=== PATIENT | female | born 1990 | race Caucasian/White ===

== ENCOUNTER 2017-04-25 10:44 | Emergency (ER) | payer SELFPAY ==
[2017-04-25 11:06] VITALS: BP 120/53
[2017-04-25] MEDS ORDERED: PROCHLORPERAZINE INJ 5 MG/ML 2 ML VIAL IV ONE (11:30)
--- NOTE | 2017-04-25 11:41 | UC ---
General HPI - HPI Summary HPI Summary: patient is 10 weeks , has been vomiting not able to keep any food or drink down. no fever, no lightheadness or dizzyness - History of Current Complaint Chief Complaint: UCGI Stated Complaint: VOMITING Time Seen by Provider: 04/25/17 11:25 Hx Obtained From: Patient Hx Last Menstrual Period: 06/29/15 Onset/Duration: Sudden Onset, Lasting Days Timing: Constant Onset Severity: Mild Current Severity: Moderate Associated Signs & Symptoms: Positive: Headache, Vomiting - Allergy/Home Medications Allergies/Adverse Reactions: Allergies Allergy/AdvReac Type Severity Reaction Status Date / Time No Known Allergies Allergy Verified 04/25/17 11:01 Home Medications: Home Medications Heartburn Medication DAILY 04/25/17 [History] PMH/Surg Hx/FS Hx/Imm Hx Previously Healthy: Yes - Surgical History Surgical History: None - Family History Known Family History: Negative: Cardiac Disease, Hypertension - Social History Alcohol Use: None Substance Use Type: None Smoking Status (MU): Heavy Every Day Tobacco Smoker Type: Cigarettes Amount Used/How Often: 1 PPD Have You Smoked in the Last Year: Yes Household Exposure Type: Cigarettes - Immunization History Most Recent Influenza Vaccination: NOT THIS 2014 Review of Systems Constitutional: Fatigue Skin: Negative Eyes: Negative ENT: Negative Respiratory: Negative Cardiovascular: Negative Gastrointestinal: Vomiting, Nausea Genitourinary: Negative Motor: Negative Neurovascular: Negative Musculoskeletal: Negative Neurological: Headache Psychological: Negative All Other Systems Reviewed And Are Negative: Yes Physical Exam Triage Information Reviewed: Yes Appearance: Ill-Appearing, Pain Distress Vital Signs: Initial Vital Signs Temp 98.4 F 04/25/17 11:02 Pulse 63 04/25/17 11:02 Resp 14 04/25/17 11:02 BP 120/53 04/25/17 11:02 Pulse Ox 100 04/25/17 11:02 Eye Exam: Normal Eyes: Positive: Conjunctiva Clear ENT: Positive: Normal ENT inspection, Hearing grossly normal, Pharynx normal, TMs normal Dental Exam: Normal Neck exam: Normal Neck: Positive: Supple, Nontender, No Lymphadenopathy Respiratory Exam: Normal Respiratory: Positive: Chest non-tender, Lungs clear, Normal breath sounds Cardiovascular Exam: Normal Cardiovascular: Positive: RRR, No Murmur, Pulses Normal Abdominal Exam: Normal Abdomen Description: Positive: No Organomegaly, Soft, Other: - epigastric tenderness Bowel Sounds: Positive: Present Musculoskeletal Exam: Normal Musculoskeletal: Positive: Strength Intact, ROM Intact, No Edema Neurological Exam: Normal Neurological: Positive: Alert, Muscle Tone Normal Psychological Exam: Normal Skin Exam: Normal Course/Dx - Course Course Of Treatment: hx obtained, exam performed ,meds reviewed, anitnausea given, UA shows dehydration, - Differential Dx - Multi-Symptom Differential Diagnoses: Other - hyperemesis gravidarum gastroenteritis Provider Diagnoses: dehydration. . nausea and vomiting Discharge - Discharge Plan Condition: Stable Disposition: HOME Prescriptions: Metoclopramide TAB* [Reglan TAB*] 10 mg PO Q8H PRN #60 tab PRN Reason: Nausea Ranitidine HCl [Eql Acid Scuba Diver Maximum] 150 mg PO AC #30 tab Patient Education Materials: Nausea and Vomiting in (ED) Additional Instructions: 1. use the medication as directed 2. Increase fluid intake and tolerated and eat as tolerated, bland, light diet
== END 2017-04-25 12:38 | disposition home or self-care (01) ==
LOC: UCCORT 10:44
DX: O21.1 Hyperemesis gravidarum with metabolic disturbance (principal); R51 Headache; R53.83 Other fatigue; Z3A.10 10 weeks gestation of pregnancy; F17.210 Nicotine dependence, cigarettes, uncomplicated
CPT/HCPCS: 81003; 84702; 96372; 99212; G0463; J0780

== ENCOUNTER 2018-03-21 11:22 | Emergency (ER) | payer OTHER ==
[2018-03-21 12:15] VITALS: BP 110/47
[2018-03-21] MEDS ORDERED: Albuterol 2.5 MG/3 ML NEB.SOL* (0.083%) INH ONE (12:27)
--- NOTE | 2018-03-21 12:27 | UC ---
General HPI - HPI Summary HPI Summary: Patient resents complained of cough, stuffy nose, headache, backache and fever. This began about a week ago with basic head cold that has moved into her chest. She notes it is getting progressively worse. The fever is subjective. She admits to being short of breath and wheezing. She denies any history of asthma but offers that she's had pneumonia in the past and this is feeling similar. She self treated with some DayQuil and NyQuil which gives her some transient relief. She has no associated chest pain nausea vomiting diarrhea. - History of Current Complaint Stated Complaint: HEAD COLD Time Seen by Provider: 03/21/18 12:12 Hx Obtained From: Patient Hx Last Menstrual Period: pt on depo and had a baby 4 months ago Onset/Duration: Gradual Onset Timing: Constant Pain Intensity: 6 Associated Signs & Symptoms: Positive: Back Pain - from cough, Cough. 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 - Surgical History Surgical History: None - Family History Known Family History: Negative: Cardiac Disease, Hypertension - Social History 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 Lives: With Family Alcohol Use: None Substance Use Type: Prescribed Substance Use Comment - Amount & Last Used: suboxone Smoking Status (MU): Heavy Every Day Tobacco Smoker Type: Cigarettes Amount Used/How Often: 1 PPD Length of Time of Smoking/Using Tobacco: since age 14 Have You Smoked in the Last Year: Yes Household Exposure Type: Cigarettes - Immunization History Most Recent Influenza Vaccination: NOT THIS SEASON, 2014 Vaccination Up to Date: Yes Review of Systems Constitutional: Fever, Chills Skin: Negative Eyes: Negative ENT: Sinus Congestion Respiratory: Shortness Of Breath, Cough Cardiovascular: Negative Gastrointestinal: Negative Genitourinary: Negative Motor: Negative Neurovascular: Negative Musculoskeletal: Other: - back pain Neurological: Negative Psychological: Negative Is Patient Immunocompromised?: No All Other Systems Reviewed And Are Negative: Yes Physical Exam Triage Information Reviewed: Yes Appearance: Well-Appearing Vital Signs: Initial Vital Signs Temp 97.4 F 03/21/18 12:04 Pulse 64 03/21/18 12:04 Resp 16 03/21/18 12:04 BP 110/47 03/21/18 12:04 Pulse Ox 97 03/21/18 12:04 Vital Signs Reviewed: Yes Eyes: Positive: Conjunctiva Clear ENT: Positive: Pharynx normal, TMs normal. Negative: Nasal congestion, Nasal drainage Neck: Positive: Supple, Nontender, No Lymphadenopathy Respiratory: Positive: No respiratory distress, Decreased breath sounds, Wheezing, Other: - congested cough Cardiovascular: Positive: RRR, No Murmur Abdomen Description: Positive: Nontender, No Organomegaly, Soft Bowel Sounds: Positive: Present Musculoskeletal: Positive: ROM Intact Neurological: Positive: Alert Psychological: Positive: Age Appropriate Behavior Skin Exam: Normal Diagnostics - Radiology No standard instances Radiology Interpretation Completed By: Radiologist - no infiltrate Re-Evaluation - Re-Evaluation First Eval Change: Improved - improved aeration, less wheezy Course/Dx - Course Course Of Treatment: abruptly worse with fever, bronchospasm and productive cough thus will cover for possible early pneumonia. nt breast feeding thus will use doxycycline. - Differential Dx - Multi-Symptom Provider Diagnoses: bronchospasm, productive cough, possible early pneumonia Discharge - Sign-Out/Discharge Documenting (check all that apply): Patient Departure - Discharge Plan Condition: Stable Disposition: HOME Prescriptions: Albuterol HFA INHALER* [Ventolin HFA Inhaler*] 2 puff INH Q6H #1 mdi DOXYcycline CAP(*) [DOXYcycline 100MG CAP(*)] 100 mg PO BID #20 cap predniSONE [Deltasone 20 MG TAB] 40 mg PO DAILY 3 Days #6 tablet Patient Education Materials: Acute Cough (ED), Bronchospasm (ED) Referrals: Michele Garcia MD [Primary Care Provider] - 3 Days - Billing Disposition and Condition Condition: STABLE Disposition: Home
--- NOTE | 2018-03-21 13:03 | RAD ---
INDICATION: Fever, cough, chest pain, shortness of breath for one week. COMPARISON: August 22, 2011 TECHNIQUE: Dual energy PA and routine lateral views of the chest were obtained. REPORT: Lung volumes appear elevated. Mild prominence of the interstitial markings without suspicious interval change accounting for difference in technique compared with the 2011 exam. No compelling alveolar consolidation to favor pneumonia. Negative for pleural effusion or pneumothorax. The heart, pulmonary vasculature, and mediastinal contours are unremarkable. Mild compression deformity of the T9 vertebral body is chronic. IMPRESSION: #. Elevated lung volumes suggest potential obstructive lung disease. #. No compelling evidence for pneumonia.
== END 2018-03-21 13:26 | disposition home or self-care (01) ==
LOC: UCCORT 11:22
DX: F17.210 Nicotine dependence, cigarettes, uncomplicated (principal); J98.01 Acute bronchospasm; R05 Cough
CPT/HCPCS: 71046; 99212; G0463

== ENCOUNTER 2018-06-23 10:24 | Emergency (ER) | payer OTHER ==
[2018-06-23 10:44] VITALS: BP 110/59
--- NOTE | 2018-06-23 11:25 | UC ---
UC General HPI - HPI Summary HPI Summary: sinus congestion, fever and cough x 2-3 weeks. all are worsening. + sob, wheezing and smokes 1/2 ppd. no hx asthma. purukent nasal d/c and sputum. - History of Current Complaint Chief Complaint: UCRespiratory Stated Complaint: FEVER,COUGH Time Seen by Provider: 06/23/18 11:17 Hx Obtained From: Patient Hx Last Menstrual Period: unsure Onset/Duration: Gradual Onset Timing: Constant Pain Intensity: 0 Associated Signs & Symptoms: Positive: Cough, Fever, SOB, Wheezing - Allergy/Home Medications Allergies/Adverse Reactions: Allergies Allergy/AdvReac Type Severity Reaction Status Date / Time No Known Allergies Allergy Verified 06/23/18 10:38 Home Medications: Home Medications Control Pill 1 tab PO DAILY 06/23/18 [History Confirmed 06/23/18] PMH/Surg Hx/FS Hx/Imm Hx - Additional Past Medical History Additional PMH: opiate recovery - Surgical History Surgical History: None - Family History Known Family History: Positive: Diabetes Negative: Cardiac Disease, Hypertension - Social History 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 Lives: With Family Alcohol Use: None Substance Use Type: Prescribed Substance Use Comment - Amount & Last Used: suboxone Smoking Status (MU): Heavy Every Day Tobacco Smoker Type: Cigarettes Amount Used/How Often: 1/2 PPD Length of Time of Smoking/Using Tobacco: since age 14 Have You Smoked in the Last Year: Yes Household Exposure Type: Cigarettes - Immunization History Most Recent Influenza Vaccination: NOT THIS SEASON, 2014 Vaccination Up to Date: Yes Review of Systems Constitutional: Fever Skin: Negative Eyes: Negative ENT: Sinus Congestion, Sinus Pain/Tenderness Respiratory: Shortness Of Breath, Cough Cardiovascular: Negative Gastrointestinal: Negative Genitourinary: Negative Motor: Negative Neurovascular: Negative Musculoskeletal: Negative Neurological: Negative Psychological: Negative Is Patient Immunocompromised?: No All Other Systems Reviewed And Are Negative: Yes Physical Exam Triage Information Reviewed: Yes Appearance: Well-Appearing Vital Signs: Initial Vital Signs Temp 97.6 F 06/23/18 10:39 Pulse 77 06/23/18 10:39 Resp 16 06/23/18 10:39 BP 110/59 06/23/18 10:39 Pulse Ox 99 06/23/18 10:39 Vital Signs Reviewed: Yes Eyes: Positive: Conjunctiva Clear ENT: Positive: Pharynx normal, Nasal congestion, TMs normal, Sinus tenderness. Negative: Nasal drainage Neck: Positive: Supple, Nontender, No Lymphadenopathy Respiratory: Positive: Lungs clear, Normal breath sounds, Other: - congested cough. Cardiovascular: Positive: RRR, No Murmur Abdomen Description: Positive: Nontender, No Organomegaly, Soft Bowel Sounds: Positive: Present Musculoskeletal: Positive: ROM Intact Neurological: Positive: Alert Psychological: Positive: Age Appropriate Behavior Skin Exam: Normal Course/Dx - Differential Dx - Multi-Symptom Provider Diagnoses: sinusitis. bronchitis Discharge - Sign-Out/Discharge Documenting (check all that apply): Patient Departure All imaging exams completed and their final reports reviewed: No Studies - Discharge Plan Condition: Stable Disposition: HOME Prescriptions: Albuterol HFA INHALER* [Ventolin HFA Inhaler*] 2 puff INH Q6H #1 mdi Amoxicillin/Clavulanate TAB* [Augmentin TAB 875*] 875 mg PO BID 10 Days #20 tab Patient Education Materials: Sinusitis (ED), Acute Bronchitis (ED) Referrals: Michele Garcia MD [Primary Care Provider] - 7 Days - Billing Disposition and Condition Condition: STABLE Disposition: Home
== END 2018-06-23 11:36 | disposition home or self-care (01) ==
LOC: UCCORT 10:24
DX: J32.9 Chronic sinusitis, unspecified (principal); J40 Bronchitis, not specified as acute or chronic; F17.210 Nicotine dependence, cigarettes, uncomplicated; F11.11 Opioid abuse, in remission
CPT/HCPCS: 99212; G0463

== ENCOUNTER 2019-06-22 21:26 | Emergency (ER) | payer OTHER ==
[2019-06-22 21:42] VITALS: BP 127/64
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
== END 2019-06-22 21:49 | disposition left against medical advice (07) ==
LOC: UCCORT 21:26
DX: S29.9XXA Unspecified injury of thorax, initial encounter (principal); R06.02 Shortness of breath; F17.210 Nicotine dependence, cigarettes, uncomplicated; V48.0XXA Car driver injured in noncollision transport accident in nontraffic accident, initial encounter; Y93.89 Activity, other specified; Y92.9 Unspecified place or not applicable
CPT/HCPCS: 93005; 99212; G0463

== ENCOUNTER 2019-11-11 18:07 | Emergency (ER) | payer OTHER ==
[2019-11-11 18:34] VITALS: BP 125/73
--- NOTE | 2019-11-11 18:43 | UC ---
Dental HPI - HPI Summary HPI Summary: 29-year-old female who had part of her left central incisor break and she's had a toothache since then. - History of Current Complaint Chief Complaint: UCDentalProblem Stated Complaint: MOUTH PAIN Time Seen by Provider: 11/11/19 18:40 Hx Obtained From: Patient Hx Last Menstrual Period: unknown ?: No Onset/Duration: Sudden Onset Severity: Mild Pain Intensity: 7 Aggravating Factor(s): Chewing Alleviating Factor(s): Nothing - Allergies/Home Medications Allergies/Adverse Reactions: Allergies Allergy/AdvReac Type Severity Reaction Status Date / Time No Known Allergies Allergy Verified 11/11/19 18:25 Home Medications: Home Medications Buprenorp/Nalox 8-2 MG FILM [Suboxone 8 mg-2 mg Sl Film] 1 each SL TID 03/21/18 [History Confirmed 11/11/19] Gabapentin 600 mg PO DAILY PRN 06/22/19 [History Confirmed 11/11/19] Acetaminophen [Acetaminophen Extra Strength] 1,000 mg PO Q3HR PRN 11/11/19 [ History Confirmed 11/11/19] Amoxicillin/Clavulanate TAB* [Augmentin TAB 875*] 875 mg PO BID 10 Days #20 tab 11/11/19 [Rx] Benzocaine [Oral Analgesic] 12 ml MM SEE INSTRUCTIONS 11/11/19 [History Confirmed 11/11/19] PMH/Surg Hx/FS Hx/Imm Hx Previously Healthy: Yes - Surgical History Surgical History: None - Family History Known Family History: Positive: None Negative: Cardiac Disease, Hypertension - Social History Alcohol Use: None Substance Use Type: Prescribed Substance Use Comment - Amount & Last Used: suboxone Smoking Status (MU): Heavy Every Day Tobacco Smoker Type: Cigarettes Amount Used/How Often: 1/2 PPD Length of Time of Smoking/Using Tobacco: 10 years Have You Smoked in the Last Year: Yes Household Exposure Type: Cigarettes - Immunization History Most Recent Influenza Vaccination: NOT THIS , 2014 Vaccination Up to Date: Yes Review of Systems All Other Systems Reviewed And Are Negative: Yes ENT: Positive: Dental Pain Is Patient Immunocompromised?: No Physical Exam Triage Information Reviewed: Yes Appearance: Well-Appearing, No Pain Distress, Well-Nourished Vital Signs: Initial Vital Signs Temp 97.8 F 11/11/19 18:30 Pulse 102 11/11/19 18:30 Resp 17 11/11/19 18:30 BP 125/73 11/11/19 18:30 Pulse Ox 100 11/11/19 18:30 Vital Signs Reviewed: Yes Eyes: Positive: Conjunctiva Clear ENT: Positive: Pharynx normal, TMs normal, Uvula midline Dental: Positive: Gross Decay/Caries @ - Patient has numerous dental caries. The affected tooth is her left central incisor which appears to have cavities on both sides of his present. The gumline itself is mildly swollen and erythematous. Neck: Positive: Supple, Nontender, No Lymphadenopathy Musculoskeletal Exam: Normal Neurological Exam: Normal Psychological Exam: Normal Skin Exam: Normal Dental Complaint Course/Dx - Course Course Of Treatment: I started the patient on Augmentin and advised her she is to follow-up with her dentist. The patient has a lot of fear of dentists however she does need extensive dental work done. I also advised her the antibiotic would help however she needs to get her teeth repaired. - Differential Dx/Diagnosis Provider Diagnosis: Toothache Discharge ED - Sign-Out/Discharge Documenting (check all that apply): Patient Departure All imaging exams completed and their final reports reviewed: No Studies - Discharge Plan Condition: Good Disposition: HOME Prescriptions: Amoxicillin/Clavulanate TAB* [Augmentin TAB 875*] 875 mg PO BID 10 Days #20 tab Patient Education Materials: Toothache (ED) Referrals: [facility] [Outside] No Primary Care Phys,NOPCP [Primary Care Provider] - Additional Instructions: Take the antibiotic with food, alternate Tylenol every 4 hours with Motrin every 8 hours. Call your dentist on Thursday morning and make an appointment to be seen. If you develop any worsening symptoms, fever, facial swelling your to go to the emergency room for further treatment. - Billing Disposition and Condition Condition: GOOD Disposition: Home - Attestation Statements Provider Attestation: Chart has been reviewed. I did not see the patient but was available for consult. GOSIA.
== END 2019-11-11 18:52 | disposition home or self-care (01) ==
LOC: UCCORT 18:07
DX: K08.89 Other specified disorders of teeth and supporting structures (principal); F17.210 Nicotine dependence, cigarettes, uncomplicated
CPT/HCPCS: 99212; G0463